=== PATIENT | male | born 1940 | race Caucasian/White ===

== ENCOUNTER 2016-10-26 10:19 | Emergency (ER) | payer OTHER ==
[2016-10-26 10:50] VITALS: BP 145/83
--- NOTE | 2016-10-26 12:11 | UC ---
Knee Pain HPI - HPI Summary HPI Summary: 76 male presents with complaints of left knee pain and swelling that has been ongoing for the past month. Patient states he was out doing some hard labor at home 1 month ago and the next day his knee was very sore. Since then he has went in saunas and done yoga which relieves the swelling and pain for the time being however it returns and is worse. Patient states the pain is due to the swelling and is more pressure. Some numbness in the area of his knee where the swelling is. Patient states the swelling moves. Denies numbness/tingling. Patient denies any known injury or trauma. Denies bruising and erythema. Is able to flex and extend and bear weight/walk however can not walk long distances. Patient has been taking MEM, a homeopathic anti-inflammatory daily, without much relief. Has only tried one or two pills of ibuprofen. Overuse makes it worse. Denies gout history, arthritis history and fever/chills. Admits to drinking wine daily. Patient also does PT to align his pelvis as he was using more of his right LE and think it also could be the cause of swelling on his left knee, from the shifting. - History of Current Complaint Chief Complaint: UCLowerExtremity Stated Complaint: KNEE PAIN Time Seen by Provider: 10/26/16 11:42 Hx Obtained From: Patient Onset/Duration: Sudden Onset, Lasting Weeks - 1 month, Still Present, Worse Since - has been becoming more frequent Severity Initially: Mild Severity Currently: Mild Pain Intensity: 6 Pain Scale Used: 0-10 Numeric Character: Dull - pressure, Aching Aggravating Factor(s): Movement, Prolonged Standing - and walking Alleviating Factor(s): Rest Associated Signs And Symptoms: Positive: Swelling, Numbness Able to Bear Weight: Yes - Risk Factors Septic Arthritis Risk Factor: Negative Gout Risk Factor: Age ^ 41, Male, Alcohol Abuse - drinks wine daily - Allergies/Home Medications Allergies/Adverse Reactions: Allergies Allergy/AdvReac Type Severity Reaction Status Date / Time No Known Allergies Allergy Verified 10/25/15 09:03 PMH/Surg Hx/FS Hx/Imm Hx Endocrine History Of: Denies: Diabetes, Thyroid Disease Cardiovascular History Of: Denies: Cardiac Disorders, Hypertension Respiratory History Of: Denies: COPD, Asthma GI/ History Of: Reports: Kidney Stones Denies: Ulcer - Surgical History Surgical History: Yes Surgery Procedure, Year, and Place: bilat cataract surgery with lens - Family History Known Family History: Positive: None - Social History Alcohol Use: Daily Alcohol Amount: wine Substance Use Type: None Smoking Status (MU): Never Smoked Tobacco Review of Systems Constitutional: Negative Respiratory: Negative Cardiovascular: Negative Gastrointestinal: Negative Motor: Negative Neurovascular: Negative Musculoskeletal: Arthralgia, Edema - left knee, Myalgia All Other Systems Reviewed And Are Negative: Yes Physical Exam Triage Information Reviewed: Yes Appearance: Well-Appearing, No Pain Distress, Well-Nourished Vital Signs: Initial Vital Signs Temp 98 F 10/26/16 10:44 Pulse 63 10/26/16 10:44 Resp 16 10/26/16 10:44 BP 145/83 10/26/16 10:44 Pulse Ox 99 10/26/16 10:44 slightly elevated BP noted. Vital Signs Reviewed: Yes Eye Exam: Normal Eyes: Positive: Conjunctiva Clear ENT: Positive: Normal ENT inspection Neck: Positive: Supple, Nontender Respiratory: Positive: Chest non-tender, Lungs clear, Normal breath sounds, No respiratory distress, No accessory muscle use Cardiovascular: Positive: RRR, No Murmur, Pulses Normal - 2+, Brisk Capillary Refill - <2 seconds Musculoskeletal: Positive: Strength Intact, ROM Intact - some limitation due to swelling, Edema @ - left knee mild edema compared to right knee. 18 inches on left and 17inches on the right when measured., Other: - no crepitus, step off or obvious deformity noted. patella intact. no laxity noted. obvious swelling of left knee Neurological Exam: Normal Neurological: Positive: Alert - sensation intact and normal, Muscle Tone Normal Skin Exam: Normal Skin: Positive: Other - no bruising or erythema Diagnostics - Radiology left knee Xray Interpretation: Positive (See Comments) - There is minor tricompartmental bony spur formation and there are early findings of chondrocalcinosis. There is mild narrowing of the medial joint space compartment. There is a small joint effusion. Radiology Interpretation Completed By: Radiologist Knee Pain Course/Dx - Course Course Of Treatment: given naproxen to take at home for beginnings of pseudogout and for inflammation. rest, elevate, compression, has knee brace at home. educated on pseudogout and arthritis. follow up with pcp as further treatment may be necessary. aware of wrosening signs and symptoms. educated on foods to stay away from. no urgent need for fluid aspiration at this time. - Differential Dx/Diagnosis Differential Diagnosis/HQI/PQRI: Contusion, Dislocation, Gout, Infection, Sprain , Strain Provider Diagnoses: osteoarthritis, beginnings of pseudogout, left knee joint effusion Discharge - Discharge Plan Condition: Stable Disposition: HOME Prescriptions: Naproxen TAB* [Naprosyn 375 mg TAB*] 375 mg PO BID #30 tab Patient Education Materials: Pseudogout (ED), Arthritis (ED) Referrals: Dianna Elias MD [Primary Care Provider] - Additional Instructions: Take prescribed medication as directed while symptoms persist. Take with food. Try and rest and elevate your knee/leg. Refrain from long distance walking. Ice knee 20 minutes on and 20 minutes off multiple times daily. Wear knee brace/smith bandage to apply compression to help with swelling. Follow up with primary care provider. Recommend to re-check BP at follow up visit within 2 weeks. If symptoms worsen or persist you may need further evaluation and treatment.
--- NOTE | 2016-10-26 12:26 | RAD ---
INDICATION: Knee pain COMPARISON: None TECHNIQUE: AP, lateral, tunnel, and sunrise views were obtained. FINDINGS: There is minor tricompartmental bony spur formation and there are early findings of chondrocalcinosis. There is mild narrowing of the medial joint space compartment. There is a small joint effusion. IMPRESSION: MILD TO MODERATE OSTEOARTHRITIC CHANGES DESCRIBED WITH SMALL JOINT EFFUSION.
== END 2016-10-26 12:47 | disposition home or self-care (01) ==
LOC: UCEAST 10:19
DX: M17.12 Unilateral primary osteoarthritis, left knee (principal); M25.462 Effusion, left knee; Z87.442 Personal history of urinary calculi; Z98.42 Cataract extraction status, left eye; Z98.41 Cataract extraction status, right eye; Z96.1 Presence of intraocular lens
CPT/HCPCS: 99212; G0463

== ENCOUNTER 2016-11-30 09:51 | Emergency (ER) | payer OTHER ==
[2016-11-30 12:27] VITALS: BP 140/78
--- NOTE | 2016-11-30 13:03 | RAD ---
HISTORY: Progressive right hip pain COMPARISONS: None VIEWS: 5 , Frontal, lateral, coned-down lateral sacral, and bilateral oblique views of the lumbar spine. FINDINGS: ALIGNMENT: There is a dextroscoliotic curvature of the spine VERTEBRAL BODIES: There is multilevel bridging anterolateral marginal osteophyte formation JOINTS: There is diffuse extensive facet osteoarthritis most pronounced along the lower lumbar spine INTERVERTEBRAL DISCS: There is diffuse loss of intervertebral disc height. SOFT TISSUE: Unremarkable. OTHER: The pelvis is unremarkable. The lung bases are clear. IMPRESSION: ADVANCED DEGENERATIVE DISC DISEASE AND OSTEOARTHRITIS
--- NOTE | 2016-11-30 13:04 | RAD ---
INDICATION: Progressive right hip pain. COMPARISON: There are no prior studies available for comparison. TECHNIQUE: An AP view of the pelvis and frontal and lateral views of the right hip were obtained. FINDINGS: The bones are in normal alignment. No fracture is seen. There is moderate bilateral osteoarthritic change in the hips. IMPRESSION: MODERATE BILATERAL OSTEOARTHRITIC CHANGE IN THE HIPS.
--- NOTE | 2016-12-13 13:23 | UC ---
Jonh Mcclure Salem, scribed for Heidi Babb MD on 11/30/16 at 1216 . Lower Extremity/Ankle HPI - HPI Summary HPI Summary: Patient is a 76 y/o M who presents to the with right upper leg pain for the past couple of weeks, worse since. He states that pain radiates into his groin and pelvis. He denies redness, swelling, or warmth to touch. Pt also denies any injuries, but states that he was on a long road trip recently which aggravated edema. He also states that ice alleviates pain. He has been seeing a physical therapist for pelvis complaints for some time. Pt also had a left knee complaint recently because it kept giving out. 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 PMHx of sciatica. Patients medication reviewed this visit. - History of Current Complaint Chief Complaint: UCLowerExtremity Stated Complaint: PAIN IN LEG Time Seen by Provider: 11/30/16 12:14 Hx Obtained From: Patient Onset/Duration: Gradual Onset, Lasting Weeks, Still Present Severity Initially: Moderate Severity Currently: Moderate Pain Intensity: 6 Pain Scale Used: 0-10 Numeric Aggravating Factor(s): Other Alleviating Factor(s): Ice Able to Bear Weight: Yes - Allergies/Home Medications Allergies/Adverse Reactions: Allergies Allergy/AdvReac Type Severity Reaction Status Date / Time No Known Allergies Allergy Verified 11/30/16 10:10 PMH/Surg Hx/FS Hx/Imm Hx Previously Healthy: Yes - Surgical History Surgical History: Yes Surgery Procedure, Year, and Place: bilat cataract surgery with lens - Family History Known Family History: Positive: Other - No fhx of blood clots. Negative: Hypertension - Social History Alcohol Use: Daily Alcohol Amount: wine Substance Use Type: None Smoking Status (MU): Never Smoked Tobacco Review of Systems Constitutional: Negative Musculoskeletal: Other: - See HPI. All Other Systems Reviewed And Are Negative: Yes Physical Exam Triage Information Reviewed: Yes Appearance: Well-Nourished Vital Signs: Initial Vital Signs Temp 98.1 F 11/30/16 10:10 Pulse 66 11/30/16 10:10 Resp 16 11/30/16 10:10 BP 127/87 11/30/16 10:10 Pulse Ox 98 11/30/16 10:10 Vital Signs Reviewed: Yes Eye Exam: Normal ENT Exam: Normal Neck exam: Normal Neck: Positive: No Lymphadenopathy Respiratory Exam: Normal Respiratory: Positive: Chest non-tender, Lungs clear, Normal breath sounds, No respiratory distress, No accessory muscle use Cardiovascular Exam: Normal Cardiovascular: Positive: RRR, No Murmur, Pulses Normal, Brisk Capillary Refill Abdominal Exam: Normal Abdomen Description: Positive: Nontender, No Organomegaly, Soft Bowel Sounds: Positive: Present Musculoskeletal Exam: Other - tender diffuse low back, mild tender R lower sciatic region. ++ tender (inside) R groin. No adenopathy appreciated. Gait slow, steady. Musculoskeletal: Positive: Strength Intact Neurological Exam: Normal - nonfocal, grossly intact except as noted above. Psychological Exam: Normal - conversing easily and appropriately Skin Exam: Normal - no visible or reported rash Diagnostics - Radiology HIP RIGHT AND PELVIS XR Radiology Interpretation Completed By: Radiologist - IMPRESSION: MODERATE BILATERAL OSTEOARTHRITIC CHANGE IN THE HIPS. LUMBARSACRAL XR Radiology Interpretation Completed By: Radiologist - IMPRESSION: ADVANCED DEGENERATIVE DISC DISEASE AND OSTEOARTHRITIS Re-Evaluation - Re-Evaluation First Eval Re-Evaluation Time: 13:26 Comment: Reviewed imaging results with pt and . Lower Extremity Course/Dx - Course Course Of Treatment: Reviewed xray reports with pt. Sign djd. Consider concomitant sacroileitis. I suspect sciatica, possible w/ obturator component. Reviewed coa / f/u need with Mr. Ervin. Questions as posed answered to the best of my ability. - Differential Dx/Diagnosis Provider Diagnoses: sciatica. djd Discharge - Discharge Plan Condition: Stable Disposition: HOME Prescriptions: Cyclobenzaprine TAB* [Flexeril 10 MG TAB*] 10 mg PO TID PRN #30 tab PRN Reason: Spasms Naproxen [Naproxen EC 500 MG TAB] 500 mg PO Q12H PRN #30 tab PRN Reason: pain Patient Education Materials: Sciatica (ED), Degenerative Disc Disease (ED), Arthritis (ED) Referrals: Curt GLASER,Dianna Villa [Primary Care Provider] - Additional Instructions: Please follow up with your primary care provider in 1-2 weeks. Seek medical attention for worse or new problems in the meantime. The documentation as recorded by the Jonh rucker Salem accurately reflects the service I personally performed and the decisions made by , Heidi Babb MD.
== END 2016-11-30 13:43 | disposition home or self-care (01) ==
LOC: UCEAST 09:51
DX: M54.30 Sciatica, unspecified side (principal); M47.897 Other spondylosis, lumbosacral region; M16.0 Bilateral primary osteoarthritis of hip
CPT/HCPCS: 72110; 99212; G0463

== ENCOUNTER 2017-06-19 08:54 | Emergency (ER) | payer OTHER ==
--- NOTE | 2017-06-19 10:51 | UC ---
Lower Extremity/Ankle HPI - HPI Summary HPI Summary: Pt presents with left great toe pain, swelling, and redness for the last 2 days. He denies injury. He woke up 2 days ago with his left great toe having mild symptoms, but has gradually increased. He is able to ambulate without assistance, but with pain. Denies fever, chills, hx of gout or kidney issues, or change in diet. - History of Current Complaint Chief Complaint: UCLowerExtremity Stated Complaint: FOOT PAIN Time Seen by Provider: 06/19/17 10:50 Hx Obtained From: Patient Onset/Duration: Sudden Onset Severity Initially: Moderate Severity Currently: Severe Pain Intensity: 10 Pain Scale Used: 0-10 Numeric Aggravating Factor(s): Standing, Ambulation Alleviating Factor(s): Rest, Ice Able to Bear Weight: Yes - Allergies/Home Medications Allergies/Adverse Reactions: Allergies Allergy/AdvReac Type Severity Reaction Status Date / Time No Known Allergies Allergy Verified 06/19/17 09:01 PMH/Surg Hx/FS Hx/Imm Hx Previously Healthy: Yes - Surgical History Surgical History: Yes Surgery Procedure, Year, and Place: bilat cataract surgery with lens - Family History Known Family History: Positive: None, Other - No fhx of blood clots. Negative: Hypertension - Social History Occupation: Retired Lives: With Family Alcohol Use: Daily Alcohol Amount: wine Substance Use Type: None Smoking Status (MU): Never Smoked Tobacco Review of Systems Constitutional: Negative Skin: Other - Redness and swelling left great toe ENT: Negative Respiratory: Negative Cardiovascular: Negative Neurovascular: Negative Musculoskeletal: Edema - Left great toe, Other: - Pain left great toe Neurological: Negative All Other Systems Reviewed And Are Negative: Yes Physical Exam Triage Information Reviewed: Yes Appearance: Well-Appearing, No Pain Distress, Well-Nourished Vital Signs: Initial Vital Signs Temp 97.7 F 06/19/17 09:02 Pulse 77 06/19/17 09:02 Resp 20 06/19/17 09:02 BP 143/80 06/19/17 09:02 Pulse Ox 100 06/19/17 09:02 Vital Signs Reviewed: Yes Respiratory: Positive: Chest non-tender, Lungs clear, Normal breath sounds, No respiratory distress, No accessory muscle use Cardiovascular: Positive: RRR, No Murmur, Pulses Normal Musculoskeletal: Positive: Strength Intact, ROM Intact, Edema @ - Left great toe MTP, Other: - TTP left great toe MTP. Neurological: Positive: Alert, Other: - Sensations intact left foot and all toes Psychological: Positive: Age Appropriate Behavior Skin: Positive: Other - Erythema, mild warmth, and mild edema over the left dorsal and lateral great toe about the MCP joint. No streaking, drainage, bleeding, or skin breakdown. Lower Extremity Course/Dx - Course Course Of Treatment: Suspect gout. - Differential Dx/Diagnosis Provider Diagnoses: Gout left great toe Discharge - Discharge Plan Condition: Stable Disposition: HOME Prescriptions: Colchicine* [Colcrys*] 0.6 mg PO DAILY #3 tab predniSONE TAB* [Deltasone TAB*] 40 mg PO DAILY #10 tab Patient Education Materials: Gout (ED) Referrals: Curt GLASER,Dianna Villa [Primary Care Provider] - Additional Instructions: If you develop a fever, shortness of breath, chest pain, new or worsening symptoms - please call your PCP or go to the ED. Your blood pressure was high at todays visit. Please see your primary provider within 4 weeks for recheck and re-evaluation.
[2017-06-19 11:18] VITALS: BP 169/88
== END 2017-06-19 11:20 | disposition home or self-care (01) ==
LOC: UCEAST 08:54
DX: M10.072 Idiopathic gout, left ankle and foot (principal)
CPT/HCPCS: 99212; G0463

== ENCOUNTER 2024-05-21 09:16 | Inpatient (IN) ==
[2024-05-21] MEDS: Morphine 4 MG/ML VIAL (1 ml) IV ONE (10:33)
[2024-05-21] MEDS: Ondansetron 4 mg VIAL 2 MG/ML 2 ml VIAL IV ONE (10:33)
[2024-05-21 10:50] LABS: ABS Eosinophils 0.1 10^3/uL (0.0-0.5); ABS Lymphocytes 0.7 10^3/uL (1.0-4.8); ABS Monocytes 0.4 10^3/uL (0.0-1.1); Eosinophil % 0.7 %; Hematocrit 29.9 % (38-53); Lymphocyte % 9.3 %; Mean Corpuscular Hemoglobin 31.1 pg (27-33); Mean Corpuscular Hgb Conc 33.5 g/dL (31-36); Mean Platelet Volume 8.4 fL (7.5-11.2); Platelet Count 271 10^3/uL (150-450); Red Blood Count 3.21 10^6/uL (4.06-5.63); Red Cell Distribution Width 17.1 % (12-17); White Blood Count 7.2 10^3/uL (3.6-10.2)
[2024-05-21] MEDS ORDERED: Prochlorperazine 5 mg/ml 2 ml VIAL (10 mg) IV PRN (11:34)
[2024-05-21 11:45] LABS: Albumin 2.5 g/dL (3.2-5.2); Albumin/Globulin Ratio 0.9 (1-3); C Reactive Protein 118.07 mg/L (<8.01); Calcium 7.7 mg/dL (8.6-10.3); Creatinine, Serum 1.01 mg/dL (0.67-1.17); Globulin 2.9 g/dL (2-4); Total Bilirubin 8.5 mg/dL (0.2-1.0); Total Protein 5.4 g/dL (6.4-8.9); eGFR CKD-EPI 74.3 (>60)
[2024-05-21] MEDS: fentaNYL 250 mcg/5 ml 50 MCG/ML 5 ml VIAL (250 MCG) ONE (14:35)
[2024-05-21] MEDS: Midazolam 2 mg/2 ml VIAL 1 mg/ml 2 ml VIAL (2 mg) ONE (14:35)
[2024-05-21] MEDS: cefTRIAXone 2 gm/50 mL D5W 2 GM/50 ML BAG IV ONE (14:35)
[2024-05-21] MEDS: Ondansetron 4 mg VIAL 2 MG/ML 2 ml VIAL IV PRN (14:49)
[2024-05-21 16:48] LABS: Hepatitis B Surface Antigen Nonreactive (Nonreactive)
[2024-05-21 16:53] LABS: Hepatitis A Ab IgM Negative (Negative)
[2024-05-21 16:54] LABS: Hepatitis B Core IgM Nonreactive (Nonreactive)
[2024-05-21 17:06] LABS: Hepatitis C Antibody Negative (Negative)
[2024-05-21] MEDS: Senna TAB 8.6 mg TAB PO SCH (22:42)
[2024-05-22 06:17] LABS: Hematocrit 26.9 % (38-53); Hemoglobin 9.2 g/dL (13.2-16.3); Mean Corpuscular Hemoglobin 31.9 pg (27-33); Mean Corpuscular Hgb Conc 34.3 g/dL (31-36); Mean Platelet Volume 8.5 fL (7.5-11.2); Platelet Count 252 10^3/uL (150-450); Red Blood Count 2.89 10^6/uL (4.06-5.63); Red Cell Distribution Width 17.9 % (12-17); White Blood Count 6.9 10^3/uL (3.6-10.2)
[2024-05-22 06:36] LABS: INR 1.33 (0.85-1.14)
[2024-05-22 06:51] LABS: Albumin 2.6 g/dL (3.2-5.2); Albumin/Globulin Ratio 0.9 (1-3); Calcium 8.2 mg/dL (8.6-10.3); Creatinine, Serum 1.55 mg/dL (0.67-1.17); Globulin 2.8 g/dL (2-4); Potassium 4.4 mmol/L (3.5-5.0); Total Bilirubin 7.5 mg/dL (0.2-1.0); Total Protein 5.4 g/dL (6.4-8.9); eGFR CKD-EPI 44.4 (>60)
[2024-05-22] MEDS: Aspirin EC 81 mg TAB.EC (enteric coated) PO SCH (09:28)
[2024-05-22] MEDS: Lactated Ringers 1000 ml BAG 1,000 ML IV SCH (11:16)
[2024-05-22] MEDS: NS 0.45% 1000 ml BAG 1,000 ML IV SCH (12:28)
[2024-05-23] MEDS: Morphine 2 MG/ML SYRINGE IV ONE (02:48)
[2024-05-23 04:55] LABS: ABS Eosinophils 0.1 10^3/uL (0.0-0.5); ABS Lymphocytes 0.5 10^3/uL (1.0-4.8); ABS Monocytes 0.3 10^3/uL (0.0-1.1); ABS Neutrophils 5.9 10^3/uL (1.5-7.6); Eosinophil % 1.5 %; Hematocrit 24.3 % (38-53); Hemoglobin 8.1 g/dL (13.2-16.3); Lymphocyte % 7.9 %; Mean Corpuscular Hemoglobin 31.2 pg (27-33); Mean Corpuscular Hgb Conc 33.4 g/dL (31-36); Mean Corpuscular Volume 93.5 fL (80-97); Mean Platelet Volume 8.1 fL (7.5-11.2); Nucleated Red Blood Cells % 0.1 %/100WBC (0.0-0.8); Platelet Count 231 10^3/uL (150-450); Red Cell Distribution Width 17.6 % (12-17); White Blood Count 6.9 10^3/uL (3.6-10.2)
[2024-05-23 05:15] LABS: Albumin 2.4 g/dL (3.5-5.7); Albumin/Globulin Ratio 0.9 (1-3); Calcium 7.4 mg/dL (8.6-10.3); Creatinine, Serum 1.9 mg/dL (0.67-1.17); Globulin 2.7 g/dL (2-4); Magnesium 1.6 mg/dL (1.9-2.7); Potassium 4.4 mmol/L (3.5-5.0); Total Bilirubin 9.1 mg/dL (0.2-1.0); Total Protein 5.1 g/dL (6.4-8.9); eGFR CKD-EPI 34.8 (>60)
[2024-05-23] MEDS: NS 0.9% 1000 ml BAG 1,000 ML IV ONE (08:53)
[2024-05-23] MEDS: Polyethylene Glycol 3350 17 GM PACKET PO PRN (08:53)
[2024-05-23 13:22] LABS: Urine Appearance Turbid; Urine Bilirubin 1+ (Negative); Urine Blood Negative (Negative); Urine Color Dark-Yellow; Urine Glucose Negative (Negative); Urine Ketones Negative (Negative); Urine Nitrite Negative (Negative); Urine Protein Trace (Negative); Urine Specific Gravity 1.016 (1.002-1.030); Urine Urobilinogen 1+ (Negative)
[2024-05-23] MEDS: Magnesium Sulfate 2 gm BAG 2 GM/50 ML BAG IVPB ONE (14:02)
[2024-05-23 14:12] LABS: Urine Bacteria Absent /HPF (Absent); Urine Red Blood Cell Absent /HPF (0-Trace); Urine White Blood Cell Absent /HPF (0-Trace)
[2024-05-23] MEDS: NS 0.9% 1000 ml BAG 1,000 ML IV SCH (16:00)
[2024-05-24 05:35] LABS: ABS Basophils 0.1 10^3/uL (0.0-0.1); ABS Eosinophils 0.2 10^3/uL (0.0-0.5); ABS Lymphocytes 0.8 10^3/uL (1.0-4.8); ABS Monocytes 0.3 10^3/uL (0.0-1.1); ABS Neutrophils 6.4 10^3/uL (1.5-7.6); Eosinophil % 2.3 %; Hematocrit 27.7 % (38-53); Hemoglobin 9.6 g/dL (13.2-16.3); Lymphocyte % 10.5 %; Mean Corpuscular Hemoglobin 32.2 pg (27-33); Mean Corpuscular Hgb Conc 34.5 g/dL (31-36); Mean Corpuscular Volume 93.3 fL (80-97); Mean Platelet Volume 8.3 fL (7.5-11.2); Platelet Count 281 10^3/uL (150-450); Red Blood Count 2.97 10^6/uL (4.06-5.63); White Blood Count 7.8 10^3/uL (3.6-10.2)
[2024-05-24] MEDS: Prochlorperazine 5 mg/ml 2 ml VIAL (10 mg) IV PRN (05:51)
[2024-05-24 06:00] LABS: Albumin 2.6 g/dL (3.5-5.7); Albumin/Globulin Ratio 0.9 (1-3); Calcium 8.2 mg/dL (8.6-10.3); Creatinine, Serum 2.25 mg/dL (0.67-1.17); Direct Bilirubin 6.9 mg/dL (0.03-0.18); Globulin 2.9 g/dL (2-4); Indirect Bilirubin 3.7 mg/dL (0.3-1.0); Magnesium 2.1 mg/dL (1.9-2.7); Potassium 4.4 mmol/L (3.5-5.0); Total Bilirubin 10.6 mg/dL (0.2-1.0); Total Protein 5.5 g/dL (6.4-8.9); eGFR CKD-EPI 28.4 (>60)
[2024-05-24] MEDS: Ondansetron 4 mg VIAL 2 MG/ML 2 ml VIAL IV ONE (07:41)
[2024-05-24] MEDS ORDERED: Acetaminophen IV 1 GM/100ML 1,000 MG/100 ML BAG IV PRN (09:47)
[2024-05-24] MEDS ORDERED: HYDROmorphone 0.5 MG/0.5 ML SYRINGE IV SLOW PU PRN ×2 (10:18→10:19)
[2024-05-24] MEDS: fentaNYL 100 mcg/2 ml 50 MCG/ML VIAL ONE (12:22)
[2024-05-24] MEDS: Acetaminophen IV 1 GM/100ML 1,000 MG/100 ML BAG IV PRN (12:44)
[2024-05-24] MEDS: NS 0.9% 1000 ml BAG 1,000 ML IV SCH (16:25)
[2024-05-24] MEDS: HYDROmorphone 0.5 MG/0.5 ML SYRINGE IV SLOW PU PRN (18:28)
[2024-05-24] MEDS: Prochlorperazine 5 mg/ml 2 ml VIAL (10 mg) IV ONE (20:45)
[2024-05-24] MEDS: Calcium Carb (TUMS) 500 mg CHEW TAB PO ONE (22:24)
[2024-05-25] MEDS: Lactated Ringers 1000 ml BAG 1,000 ML IV ONE (02:31)
[2024-05-25 03:09] LABS: Hematocrit 19.7 % (38-53); Hemoglobin 6.5 g/dL (13.2-16.3)
[2024-05-25 03:40] VITALS: BP 98/70
[2024-05-25] MEDS: Pantoprazole VIAL 40 MG VIAL IV ONE (03:53)
[2024-05-25] MEDS: Pantoprazole VIAL 40 MG VIAL ONE (04:04)
[2024-05-25] MEDS ORDERED: Ondansetron ODT 4 mg TAB 4 MG TAB SL PRN ×3 (04:32→08:51)
[2024-05-25] MEDS: Morphine ORAL CONCENTRATE 5 MG/0.25 ML ORAL.SYRIN PO PRN (04:55)
[2024-05-25] MEDS ORDERED: Lactated Ringers 1000 ml BAG 1,000 ML IV SCH (05:00)
[2024-05-25] MEDS: Morphine ORAL CONCENTRATE 5 MG/0.25 ML ORAL.SYRIN SL PRN (10:42)
[2024-05-25] MEDS: fentaNYL PATCH 25 MCG/HR 1 PATCH TRANSDERM SCH (10:43)
[2024-05-25] MEDS ORDERED: fentaNYL Patch Check Q Shift NOTE FOLLOW UP SCH (19:00)
== END 2024-05-25 10:55 | disposition expired | DRG 919 ==
LOC: ED 09:16 → EDHOLD 09:16 → SUATTDRO 11:30 → MED 20:41 → SUATTDRO 05-23 12:00
PROVIDERS: ADMIT Internal Medicine; ATTEND Internal Medicine